=== PATIENT | male | born 1995 | race Caucasian/White ===

== ENCOUNTER 2022-01-04 22:46 | Emergency (ER) | payer OTHER ==
[~2022-01-04 22:46] MED LIST: AUGMENTIN 875-1 EACH PO; BENTYL 10MG CAP10 MG PO; FLAGYL500 MG PO; IBUPROFEN800 MG PO; ZOFRAN 4 MG TAB4 MG PO
== END 2022-01-05 03:08 | disposition home or self-care (01) ==
LOC: ER1 22:46
DX: S61.213A Laceration without foreign body of left middle finger without damage to nail, initial encounter (principal); W26.0XXA Contact with knife, initial encounter
CPT/HCPCS: 12001; 99282